=== PATIENT | male | born 1995 | race Caucasian/White ===

== ENCOUNTER 2021-09-10 09:57 | Emergency (ER) | payer OTHER, SELFPAY ==
[2021-09-10 10:26] VITALS: BP 115/78; PULSE 100; RESP 18; TEMP 37.7; O2SAT 97; BMI 30.9
== END 2021-09-10 17:48 | disposition left against medical advice (07) ==
LOC: HO.ED 16:56
PROVIDERS: Emergency Provider Emergency Medicine
DX: R11.2 Nausea with vomiting, unspecified (principal)
CPT/HCPCS: 99281